=== PATIENT | male | born 1970 ===

== ENCOUNTER 2017-01-15 17:29 | Inpatient (IN) | payer OTHER ==
[2017-01-15] MEDS ORDERED: Sodium Chloride 0.9% 1,000 ML IV STA ×2 (18:05→19:20)
--- NOTE | 2017-01-15 18:17 | ED PDOC ---
Hyperglycemia/Hypoglycemia Time Seen by Provider: 01/15/17 17:59 Chief Complaint (Nursing): Weakness/Neurological Deficit Chief Complaint (Provider): hyperglycemia History Per: Patient History/Exam Limitations: no limitations Onset/Duration Of Symptoms: Days (x2-3) Current Symptoms Are (Timing): Still Present : The patient does not have any of the infectious symptoms listed except for those marked. Additional Complaint(s): Alcon Reynoso is a 46 year old male with previous medical history of diabetes, asthma and hypertension, who presents to the emergency department for an evaluation after several days of monitoring her glucose levels at home associated with polyuria/polydipsia and reported glucose level was >400 today. Denied vomiting or abdominal pain. PMD: none provided Past Medical History Reviewed: Historical Data, Nursing Documentation, Vital Signs Vital Signs: Last Vital Signs Temp 98.1 F 01/15/17 17:49 Pulse 90 01/15/17 17:49 Resp 16 01/15/17 17:49 BP 173/96 H 01/15/17 17:49 Pulse Ox 100 01/15/17 17:49 - Medical History PMH: Anxiety, Asthma, Depression, Diabetes, HTN Denies: HIV, Chronic Kidney Disease - Family History Family History: States: Diabetes - Home Medications Home Medications: Ambulatory Orders Medication Instructions Recorded Aspirin [Ecotrin] 81 mg PO DAILY 11/29/15 DULoxetine [Cymbalta] 60 mg PO DAILY 11/29/15 Enalapril Maleate [Vasotec] 20 mg PO DAILY 11/29/15 Gemfibrozil [Lopid] 600 mg PO BID 11/29/15 GlipiZIDE [Glucotrol] 10 mg PO BID 11/29/15 Hydroxyzine Pamoate [Vistaril] 25 mg PO TID PRN 11/29/15 MetFORMIN [glucoPHAGE] 1,000 mg PO BID 11/29/15 Metoprolol Succinate [Toprol XL] 50 mg PO BID 11/29/15 amLODIPine [Norvasc] 10 mg PO DAILY 11/29/15 - Allergies Allergies/Adverse Reactions: Allergies Allergy/AdvReac Type Severity Reaction Status Date / Time cashew nut Allergy URTICARIA Verified 01/15/17 17:48 cat dander Allergy URTICARIA Verified 01/15/17 17:48 dog dander Allergy URTICARIA Verified 01/15/17 17:48 mice Allergy URTICARIA Uncoded 01/15/17 17:48 Review of Systems ROS Statement: Except As Marked, All Systems Reviewed And Found Negative Gastrointestinal: Positive for: Other (polydipsia). Negative for: Vomiting, Abdominal Pain Genitourinary Male: Positive for: Frequency Physical Exam - Reviewed Nursing Documentation Reviewed: Yes Vital Signs Reviewed: Yes - Physical Exam Appears: Positive for: Well, Non-toxic, No Acute Distress Head Exam: Positive for: ATRAUMATIC, NORMAL INSPECTION, NORMOCEPHALIC ENT: Positive for: Other (tacky mucous membranes). Negative for: Normal ENT Inspection Cardiovascular/Chest: Positive for: Regular Rate, Rhythm, Chest Non Tender. Negative for: Murmur Respiratory: Positive for: Normal Breath Sounds, Accessory Muscle Use. Negative for: Decreased Breath Sounds, Respiratory Distress Gastrointestinal/Abdominal: Positive for: Normal Exam, Bowel Sounds, Soft. Negative for: Tenderness Extremity: Positive for: Normal ROM. Negative for: Tenderness, Pedal Edema, Deformity Neurologic/Psych: Positive for: Alert, Oriented - Laboratory Results Result Diagrams: 01/15/17 18:30 - ECG O2 Sat by Pulse Oximetry: 100 (RA) Pulse Ox Interpretation: Normal Medical Decision Making Medical Decision Making: Initial Impression: Hyperglycemia Initial Plan: * VBG * EKG * CMP * Urine dipstick * CBC * NS 1,000ml IV per 250mls/hr Scribe Attestation: Documented by Maggie Perez, acting as a scribe for Raul Houston MD. Provider Scribe Attestation: All medical record entries made by the Scribe were at my direction and personally dictated by me. I have reviewed the chart and agree that the record accurately reflects my personal performance of the history, physical exam, medical decision making, and the department course for this patient. I have also personally directed, reviewed, and agree with the discharge instructions and disposition. Disposition - Clinical Impression Clinical Impression: Uncontrolled diabetes mellitus - Patient ED Disposition Is Patient to be Admitted: Transfer of Care - Disposition Disposition: Transfer of Care Disposition Time: 18:57 Condition: FAIR Forms: [facility] (Bengali) Patient Signed Over To: Kristian Wilks
[2017-01-15] MEDS ORDERED: Insulin Regular 100 units/ml SC STA ×2 (18:43→22:59)
[2017-01-15 18:49] LABS: BASO # 0.1 K/uL (0.0-0.2); BASO % 0.5 % (0.0-2.0); EOS # 0.1 K/uL (0.0-0.7); HEMATOCRIT 41.1 % (35.0-51.0); LYMPH # 1.7 K/uL (1.0-4.3); LYMPH % 16.5 % (20.0-40.0); MEAN CELL VOLUME 90.2 fl (80.0-94.0); MEAN CORPUSCULAR HEMOGLOBIN 29.3 pg (27.0-31.0); MEAN CORPUSCULAR HGB CONC 32.5 g/dL (33.0-37.0); MEAN PLATELET VOLUME 10.1 fl (7.2-11.7); MONO # 0.5 K/uL (0.0-0.8); MONO % 4.7 % (0.0-10.0); NEUT # 8.1 K/uL (1.8-7.0); NEUT % 77.3 % (50.0-75.0); NRBC % 0.1 % (0.0-0.0); RED CELL DISTRIBUTION WIDTH 12.9 % (11.5-14.5); WHITE BLOOD COUNT 10.4 K/uL (4.8-10.8)
[2017-01-15 19:01] LABS: ALB/GLOB RATIO 1.3 (1.0-2.1); BILIRUBIN,TOTAL 0.3 mg/dl (0.2-1.3); CALCIUM 9.3 mg/dL (8.4-10.2)
[2017-01-15 19:02] LABS: POTASSIUM 5.1 MMOL/L (3.6-5.0)
[2017-01-15] MEDS ORDERED: Insulin Regular 100 units/ml IV STA (19:19)
--- NOTE | 2017-01-15 19:33 | ED PDOC ---
- Laboratory Results Result Diagrams: 01/15/17 18:30 01/15/17 18:30 - ECG O2 Sat by Pulse Oximetry: 100 (RA) Pulse Ox Interpretation: Normal Medical Decision Making Medical Decision Making: Time: 1899 --Patient was endorsed to provider by Dr. Raul Houston. Pending lab results and re-evaluation. Scribe Attestation: Documented by Maggie Perez, acting as a scribe for Kristian Wilks MD. Provider Scribe Attestation: All medical record entries made by the Scribe were at my direction and personally dictated by me. I have reviewed the chart and agree that the record accurately reflects my personal performance of the history, physical exam, medical decision making, and the department course for this patient. I have also personally directed, reviewed, and agree with the discharge instructions and disposition. Disposition Discussed With DrJaguar: Jonathan Giron Doctor Will See Patient In The: Hospital Counseled Patient/Family Regarding: Studies Performed, Diagnosis - Clinical Impression Clinical Impression: Uncontrolled diabetes mellitus, Hyperglycemia, Hyperkalemia, ARF (acute renal failure) - POA Present On Arrival: Poor Glycemic Control - Disposition Disposition: Admitted as In-Patient Disposition Time: 23:00 Condition: FAIR
[2017-01-15 20:12] LABS: ABG ALLEN TEST YES; ARTERIAL BLOOD GAS HCO3 24.8 mmol/L (21-28); ARTERIAL BLOOD GAS O2 CONTENT 17.9 ML/dL (15-23); ARTERIAL BLOOD GAS PH 7.36 (7.35-7.45); ARTERIAL BLOOD GAS PO2 60 mm/Hg (80-100); ARTERIAL BLOOD HGB O2 SAT 89.8 % (95.0-98.0); CARBOXYHEMOGLOBIN 2.8 % (0.5-1.5); HHB 5.5 % (0.0-5.0); METHEMOGLOBIN 1.9 % (0.0-3.0)
[2017-01-15] MEDS ORDERED: Insulin Regular 100 units/ml ONE (20:34)
[2017-01-15] MEDS ORDERED: Sod Polystyrene Sulf 15 gm/60 ml Susp PO ONE (23:01)
[2017-01-15] MEDS ORDERED: Albuterol 0.083% Inhal Sol (2.5 mg/3 mL) UD INH STA (23:01)
[2017-01-16] MEDS ORDERED: Albuterol 0.083% Inhal Sol (2.5 mg/3 mL) UD ONE (00:25)
[2017-01-16] MEDS ORDERED: Insulin Regular 100 units/ml ONE (00:25)
[2017-01-16] MEDS ORDERED: Sod Polystyrene Sulf 15 gm/60 ml Susp ONE (00:26)
--- NOTE | 2017-01-16 07:30 | CARD ---
APPROVED REPORT EKG Measurement Heart [id number] <Conclusion> Normal sinus rhythm Possible Left atrial enlargement Septal infarct, age undetermined Abnormal ECG
[2017-01-16 07:37] LABS: HEMATOCRIT 37.5 % (35.0-51.0); MEAN CELL VOLUME 88.9 fl (80.0-94.0); MEAN CORPUSCULAR HEMOGLOBIN 29.4 pg (27.0-31.0); MEAN CORPUSCULAR HGB CONC 33.1 g/dL (33.0-37.0); RED CELL DISTRIBUTION WIDTH 12.5 % (11.5-14.5); WHITE BLOOD COUNT 9.4 K/uL (4.8-10.8)
[2017-01-16 07:46] LABS: PARTIAL THROMBOPLASTIN TIME 33.8 Seconds (25.6-37.1)
[2017-01-16 07:51] LABS: ALB/GLOB RATIO 1.3 (1.0-2.1); ALKALINE PHOSPHATASE 96 U/L (38-126); ALT/SGPT 35 U/L (21-72); AST/SGOT 23 U/L (17-59); BILIRUBIN,TOTAL 0.2 mg/dl (0.2-1.3); BLOOD UREA NITROGEN 21 mg/dl (9-20); CALCIUM 8.8 mg/dL (8.4-10.2); CARBON DIOXIDE 27 mmol/L (22-30); CHLORIDE 99 mmol/L (98-107); CHOLESTEROL 222 mg/dL (0-199); GFR AFRICAN-AMERICAN > 60; GLUCOSE,RANDOM 328 mg/dL (75-110); POTASSIUM 4.1 MMOL/L (3.6-5.0); SODIUM 134 mmol/l (132-148); TOTAL PROTEIN 6.6 G/DL (6.3-8.2)
[2017-01-16 08:09] LABS: T4 4.73 ug/dl (5.5-11.0)
[2017-01-16 08:21] LABS: THYROID STIMULATING HORMONE 1.38 mIU/ML (0.46-4.68)
[2017-01-16] MEDS ORDERED: PIOGLITAZONE PO SCH (09:00)
[2017-01-16] MEDS ORDERED: [UNRECOGNIZED DRUG - OTHER] PO SCH (09:00)
[2017-01-16] MEDS ORDERED: ALOGLIPTIN PO SCH (09:00)
--- NOTE | 2017-01-16 09:11 | CP.PCM.PN ---
Subjective - Date & Time of Evaluation Date of Evaluation: 01/16/17 Time of Evaluation: 09:09 - Subjective Subjective: This patient who is 46 years of age I was called to see him for abnormal kidney function. Patient apparently came to the emergency room because of high glucose and polyuria polydipsia and blood work was done in the ER and showed abnormal as noted Past medical history diabetes mellitus for a while History of hypertension Social history nonsignificant Review of system as noted Objective - Vital Signs/Intake and Output Vital Signs (last 24 hours): Temp Pulse Resp BP Pulse Ox 97.6 F 83 18 160/99 H 96 01/16/17 08:00 01/16/17 08:00 01/16/17 08:00 01/16/17 08:00 01/16/17 08:00 Intake and Output: 01/16/17 01/16/17 06:59 18:59 Intake Total 1000 Balance 1000 - Medications Medications: Current Medications Albuterol (Ventolin Hfa 90 Mcg/Actuation (8 G)) 1 puff IH DAILY [facility] Amlodipine Besylate (Norvasc) 10 mg PO DAILY [facility] Aspirin (Ecotrin) 81 mg PO DAILY [facility] Duloxetine HCl (Cymbalta) 60 mg PO DAILY [facility] Enalapril Maleate (Vasotec) 20 mg PO DAILY [facility] Gabapentin (Neurontin) 600 mg PO TID [facility] Gemfibrozil (Lopid) 600 mg PO BID [facility] Glipizide (Glucotrol) 10 mg PO BID [facility] Home Med (Alogliptin Fredy/Pioglitazone [Alogliptin-Pioglit 25-15 Mg Tb]) 1 each PO DAILY [facility] Hydroxyzine Pamoate (Vistaril) 25 mg PO TID PRN PRN Reason: Itching / Pruritus Insulin Human Lispro (Humalog) 0 units SC ACHS [facility] PRN Reason: Protocol Metoprolol Succinate (Toprol Xl) 50 mg PO BID [facility] Pantoprazole Sodium (Protonix Ec Tab) 40 mg PO DAILY [facility] - Labs Labs: 01/16/17 07:25 01/16/17 07:25 PT 9.3 Seconds (9.8-13.1) L 01/16/17 07:25 INR 0.8 (0.9-1.2) L 01/16/17 07:25 APTT 33.8 Seconds (25.6-37.1) 01/16/17 07:25 - Constitutional Appears: No Acute Distress - ENT Exam ENT Exam: Mucous Membranes Moist - Respiratory Exam Respiratory Exam: NORMAL BREATHING PATTERN. absent: Chest Wall Tenderness, Rales - Cardiovascular Exam Cardiovascular Exam: REGULAR RHYTHM. absent: JVD, Rubs - GI/Abdominal Exam GI & Abdominal Exam: Soft, Normal Bowel Sounds - Extremities Exam Extremities Exam: absent: Calf Tenderness - Back Exam Back Exam: absent: CVA tenderness (L), CVA tenderness (R) - Neurological Exam Neurological Exam: Alert - Psychiatric Exam Psychiatric exam: Normal Affect - Skin Skin Exam: absent: Cyanosis
--- NOTE | 2017-01-16 09:13 | CP.PCM.CON ---
History of Present Illness - History of Present Illness History of Present Illness: This patient who is 46 years of age I was called to see him for abnormal kidney function. Patient apparently came to the emergency room because of high glucose and polyuria polydipsia and blood work was done in the ER and showed abnormal as noted Past medical history diabetes mellitus for a while History of hypertension Social history nonsignificant Review of system as noted Review of Systems - Constitutional Constitutional: absent: Chills - EENT Eyes: As Per HPI Nose/Mouth/Throat: As Per HPI. absent: Epistaxis, Bleeding Gums - Cardiovascular Cardiovascular: absent: Acrocyanosis, Dyspnea, Leg Edema - Respiratory Respiratory: absent: Cough, Hemoptysis, Dyspnea on Exertion - Gastrointestinal Gastrointestinal: absent: Abdominal Pain, Coffee Ground Emesis, Vomiting - Reproductive: Male Reproductive:Male: As Per HPI - Integumentary Integumentary: absent: Bleeding Lesions - Neurological Neurological: absent: Abnormal Gait, Abnormal Movements, Confusion, Dizziness, Numbness, Focal Weakness - Psychiatric Psychiatric: absent: Anxiety - Endocrine Endocrine: As Per HPI - Hematologic/Lymphatic Hematologic: absent: Easy Bleeding Past Patient History - Infectious Disease Hx of Infectious Diseases: None - Past Medical History & Family History Past Medical History?: Yes - Past Social History Smoking Status: Never Smoked - CARDIAC Hx Cardiac Disorders: Yes - PULMONARY Hx Respiratory Disorders: Yes - NEUROLOGICAL Hx Neurological Disorder: No - HEENT Hx HEENT Problems: No - RENAL Hx Chronic Kidney Disease: No - ENDOCRINE/METABOLIC Hx Endocrine Disorders: Yes - HEMATOLOGICAL/ONCOLOGICAL Hx AIDS: No Hx Human Immunodeficiency Virus (HIV): No - INTEGUMENTARY Hx Dermatological Problems: No - MUSCULOSKELETAL/RHEUMATOLOGICAL Hx Falls: No - GASTROINTESTINAL Hx Gastrointestinal Disorders: No - GENITOURINARY/GYNECOLOGICAL Hx Genitourinary Disorders: Yes - PSYCHIATRIC Hx Substance Use: No - SURGICAL HISTORY Hx Surgeries: No Hx Open Heart Surgery: No - ANESTHESIA Hx Anesthesia: No Meds Allergies/Adverse Reactions: Allergies Allergy/AdvReac Type Severity Reaction Status Date / Time cashew nut Allergy URTICARIA Verified 01/15/17 17:48 cat dander Allergy URTICARIA Verified 01/15/17 17:48 dog dander Allergy URTICARIA Verified 01/15/17 17:48 mice Allergy URTICARIA Uncoded 01/15/17 17:48 - Medications Medications: Current Medications Albuterol (Ventolin Hfa 90 Mcg/Actuation (8 G)) 1 puff IH DAILY [facility] Amlodipine Besylate (Norvasc) 10 mg PO DAILY [facility] Aspirin (Ecotrin) 81 mg PO DAILY [facility] Duloxetine HCl (Cymbalta) 60 mg PO DAILY [facility] Enalapril Maleate (Vasotec) 20 mg PO DAILY [facility] Gabapentin (Neurontin) 600 mg PO TID [facility] Gemfibrozil (Lopid) 600 mg PO BID [facility] Glipizide (Glucotrol) 10 mg PO BID [facility] Home Med (Alogliptin Fredy/Pioglitazone [Alogliptin-Pioglit 25-15 Mg Tb]) 1 each PO DAILY [facility] Hydroxyzine Pamoate (Vistaril) 25 mg PO TID PRN PRN Reason: Itching / Pruritus Insulin Human Lispro (Humalog) 0 units SC ACHS [facility] PRN Reason: Protocol Metoprolol Succinate (Toprol Xl) 50 mg PO BID [facility] Pantoprazole Sodium (Protonix Ec Tab) 40 mg PO DAILY [facility] Physical Exam - Constitutional Appears: No Acute Distress - ENT Exam ENT Exam: Mucous Membranes Moist - Respiratory Exam Respiratory Exam: NORMAL BREATHING PATTERN. absent: Chest Wall Tenderness, Rales - Cardiovascular Exam Cardiovascular Exam: Clicks. absent: JVD, Rubs - GI/Abdominal Exam GI & Abdominal Exam: Normal Bowel Sounds. absent: Distended, Guarding - Extremities Exam Extremities exam: Negative for: calf tenderness - Back Exam Back exam: absent: CVA tenderness (L), CVA tenderness (R) - Neurological Exam Neurological exam: Alert - Psychiatric Exam Psychiatric exam: Normal Affect Results - Vital Signs Recent Vital Signs: Last Vital Signs Temp 97.6 F 01/16/17 08:00 Pulse 83 01/16/17 08:00 Resp 18 01/16/17 08:00 BP 160/99 H 01/16/17 08:00 Pulse Ox 96 01/16/17 08:00 - Labs Result Diagrams: 01/16/17 07:25 01/16/17 07:25 Labs: Laboratory Results - last 24 hr 01/15/17 01/15/17 01/15/17 18:06 18:30 18:30 WBC 10.4 RBC 4.55 Hgb 13.4 Hct 41.1 MCV 90.2 MCH 29.3 MCHC 32.5 L RDW 12.9 Plt Count 264 MPV 10.1 Neut % (Auto) 77.3 H Lymph % (Auto) 16.5 L [place] % (Auto) 4.7 Eos % (Auto) 1.0 Baso % (Auto) 0.5 Neut # 8.1 H Lymph # 1.7 [place] # 0.5 Eos # 0.1 Baso # 0.1 PT INR APTT pCO2 pO2 HCO3 ABG pH ABG Total CO2 ABG O2 Saturation ABG O2 Content ABG Base Excess ABG Hemoglobin ABG Carboxyhemoglobin POC ABG HHb (Measured) ABG Methemoglobin ABG O2 Capacity Giovanny Test A-a O2 Difference Hgb O2 Saturation FiO2 Sodium 127 L Potassium 5.1 H Chloride 94 L Carbon Dioxide 22 Anion Gap 16 BUN 25 H Creatinine 1.7 H Est GFR ( Amer) 53 Est GFR (Non-Af Amer) 43 POC Glucose (mg/dL) 472 H* Random Glucose 549 H* D Calcium 9.3 Total Bilirubin 0.3 AST 26 ALT 30 Alkaline Phosphatase 90 Total Protein 7.0 Albumin 4.0 Globulin 3.0 Albumin/Globulin Ratio 1.3 Triglycerides Cholesterol LDL Cholesterol Direct HDL Cholesterol Thyroxine (T4) TSH 3rd Generation 01/15/17 01/15/17 01/15/17 19:21 19:59 22:54 WBC RBC Hgb Hct MCV MCH MCHC RDW Plt Count MPV Neut % (Auto) Lymph % (Auto) [place] % (Auto) Eos % (Auto) Baso % (Auto) Neut # Lymph # [place] # Eos # Baso # PT INR APTT pCO2 46 H pO2 60 L HCO3 24.8 ABG pH 7.36 ABG Total CO2 27.4 ABG O2 Saturation 94.2 L ABG O2 Content 17.9 ABG Base Excess 0.1 ABG Hemoglobin 14.2 ABG Carboxyhemoglobin 2.8 H POC ABG HHb (Measured) 5.5 H ABG Methemoglobin 1.9 ABG O2 Capacity 19.0 Giovanny Test Yes A-a O2 Difference 32.0 Hgb O2 Saturation 89.8 L FiO2 21.0 Sodium Potassium Chloride Carbon Dioxide Anion Gap BUN Creatinine Est GFR ( Amer) Est GFR (Non-Af Amer) POC Glucose (mg/dL) > 500 H* 398 H Random Glucose Calcium Total Bilirubin AST ALT Alkaline Phosphatase Total Protein Albumin Globulin Albumin/Globulin Ratio Triglycerides Cholesterol LDL Cholesterol Direct HDL Cholesterol Thyroxine (T4) TSH 3rd Generation 1001/16/17 01/16/17 07:25 07:25 07:25 WBC 9.4 RBC 4.22 L Hgb 12.4 Hct 37.5 MCV 88.9 MCH 29.4 MCHC 33.1 RDW 12.5 Plt Count 256 MPV Neut % (Auto) Lymph % (Auto) [place] % (Auto) Eos % (Auto) Baso % (Auto) Neut # Lymph # [place] # Eos # Baso # PT 9.3 L INR 0.8 L APTT 33.8 pCO2 pO2 HCO3 ABG pH ABG Total CO2 ABG O2 Saturation ABG O2 Content ABG Base Excess ABG Hemoglobin ABG Carboxyhemoglobin POC ABG HHb (Measured) ABG Methemoglobin ABG O2 Capacity Giovanny Test A-a O2 Difference Hgb O2 Saturation FiO2 Sodium 134 Potassium 4.1 Chloride 99 Carbon Dioxide 27 Anion Gap 12 BUN 21 H Creatinine 1.3 Est GFR ( Amer) > 60 Est GFR (Non-Af Amer) 59 POC Glucose (mg/dL) Random Glucose 328 H Calcium 8.8 Total Bilirubin 0.2 AST 23 ALT 35 Alkaline Phosphatase 96 Total Protein 6.6 Albumin 3.7 Globulin 2.9 Albumin/Globulin Ratio 1.3 Triglycerides 436 H D Cholesterol 222 H LDL Cholesterol Direct 157 H HDL Cholesterol 23 L Thyroxine (T4) 4.73 L TSH 3rd Generation 1.38 Assessment & Plan (1) ARF (acute renal failure) Assessment and Plan: Patient appeared to have acute kidney injury from dehydration which continued to improve after hydration overnight serum creatinine coming down #2 patient has hyponatremia which has been improving going hydration as well serum sodium going up #3 hyperkalemia serum potassium 5.1 which has been corrected after hydration Patient admitted with uncontrolled diabetes Continue gentle hydration receiving hemoglobin came down because of the hemoconcentration initially Continue monitoring Status: Acute
[2017-01-16] MEDS: Insulin Lispro (humaLOG) 100 Units/ml Inj SC SCH ×5 (09:59→22:22)
[2017-01-16] MEDS: Pantoprazole 40 mg EC Tab PO SCH (10:01)
[2017-01-16] MEDS: Metoprolol Succinate 50 mg XL Tab PO SCH ×2 (10:02→16:48)
[2017-01-16] MEDS: Albuterol HFA 90 mcg/actuation (8 g) IH SCH (10:03)
--- NOTE | 2017-01-16 10:46 | CARD ---
APPROVED REPORT EXAM: Two-dimensional and M-mode echocardiogram with Doppler and color Doppler. Other Information Quality : GoodRhythm : NSR INDICATION LV Function:SystolicDiastolic 2D DIMENSIONS IVSd1.84 (0.7-1.1cm)LVDd4.06 (3.9-5.9cm) LVOT Diameter2.43 (1.8-2.4cm)PWd1.10 (0.7-1.1cm) IVSs1.93 (0.8-1.2cm)LVDs2.39 (2.5-4.0cm) FS (%) 41.0 %PWs2.17 (0.8-1.2cm) M-Mode DIMENSIONS Left Atrium (MM)4.03 (2.5-4.0cm)IVSd2.09 (0.7-1.1cm) Aortic Root3.41 (2.2-3.7cm)LVDd4.26 (4.0-5.6cm) Aortic Cusp Exc.2.06 (1.5-2.0cm)PWd1.65 (0.7-1.1cm) IVSs2.26 cmFS (%) 35 % LVDs2.76 (2.0-3.8cm)PWs2.26 cm Mitral Valve MV E Udtphynz24.8cm/sMV DECEL [id number] A Mvheuost91.9cm/s MV [id number]/A ratio0.7MVA (PHT)5.63cm2 TDI Lateral E' Peak V12.14cm/sMedial E' Peak V4.32cm/sE/Lateral E'4.0 E/Medial E'11.3 Pulmonary Valve PV Peak Osmyrfuw626.4cm/s LEFT VENTRICLE The left ventricle is normal size. There is normal left ventricular wall thickness. Left ventricle systolic function is normal. The Ejection Fraction is 65-70%. There is normal LV segmental wall motion. The left ventricular diastolic function is normal. RIGHT VENTRICLE The right ventricle is normal size. There is normal right ventricular wall thickness. The right ventricular systolic function is normal. ATRIA The left atrium size is normal. The right atrium size is normal. AORTIC VALVE The aortic valve is normal in structure and function. No aortic regurgitation is present. There is no aortic valvular stenosis. MITRAL VALVE The mitral valve is normal in structure and function. There is no evidence of mitral valve prolapse. There is no mitral valve stenosis. There is no mitral valve regurgitation noted. TRICUSPID VALVE The tricuspid valve is normal in structure and function. There is no tricuspid valve regurgitation noted. PULMONIC VALVE The pulmonary valve is normal in structure and function. There is no pulmonic valvular regurgitation. GREAT VESSELS The aortic root is normal in size. The IVC was not visualized. PERICARDIAL EFFUSION The pericardium appears normal. <Conclusion> The left ventricle is normal size. There is normal left ventricular wall thickness. There is normal LV segmental wall motion. Left ventricle systolic function is normal. The Ejection Fraction is 65-70%. The left ventricular diastolic function is normal.
[2017-01-16] MEDS: Omega-3-Acid Ethyl Esters 1 GM Cap PO SCH ×2 (13:19→16:49)
[2017-01-16 13:26] LABS: RBC URINE < 1 /hpf (0-3); URINE BILIRUBIN NEGATIVE (NEGATIVE); URINE BLOOD NEGATIVE (NEGATIVE); URINE COLOR STRAW (YELLOW); URINE GLUCOSE (UA) >=500 mg/dL (Normal); URINE KETONE NEGATIVE (NEGATIVE); URINE LEUKOCYTE ESTERASE NEG Leu/uL (Negative); URINE PROTEIN 30 mg/dL (NEGATIVE); URINE UROBILINOGEN 0.2-1.0 mg/dL (0.2-1.0)
--- NOTE | 2017-01-16 13:30 | US ---
PROCEDURE: Ultrasound of the Kidneys HISTORY: ARF and hyper Lisbeth me a COMPARISON: None available. TECHNIQUE: Sonogram of the kidneys. FINDINGS: RIGHT KIDNEY: Measures: 5.1 x 7.6 x 12.2 cm. Normal in size, contour and echogenicity. No stone, solid mass lesion or hydronephrosis visualized. LEFT KIDNEY: Measures: 5.5 x 6.2 x 12 cm. Normal in size, contour and echogenicity. No stone, solid mass lesion or hydronephrosis visualized. OTHER FINDINGS: None. IMPRESSION: Unremarkable renal sonogram.
--- NOTE | 2017-01-16 13:32 | US ---
PROCEDURE: Duplex ultrasound of the carotid and vertebral arteries. HISTORY: PER MD COMPARISON: None available. TECHNIQUE: Grayscale and duplex Doppler evaluation of the cervical carotid and vertebral arteries were performed. The common carotid, carotid bifurcations and cervical ICA and proximal ECA were evaluated. The vertebral arteries were evaluated for gross patency and direction. FINDINGS: RIGHT CAROTID ARTERIES: Common Carotid Artery: Normal. Maximal flow velocity of 138.3 cm/s. Carotid Bifurcation: Focal calcified plaque Internal Carotid Artery:Heterogeneous plaque formation. tortuous ICA Maximal flow velocity of 80.1 cm/s. External Carotid Artery (proximal branches): Normal. Maximal flow velocity of 143.1 cm/s. ICA/CCA Ratio: 0.9 LEFT CAROTID ARTERIES: Common Carotid Artery: Normal. Maximal flow velocity of 102.7 cm/s. Carotid Bifurcation: Normal. Internal Carotid Artery:Heterogeneous plaque formation. Maximal flow velocity of 101.1 cm/s. External Carotid Artery (proximal branches): Normal. Maximal flow velocity of 122.1 cm/s. ICA/CCA Ratio: 1.0 VERTEBRAL ARTERIES: Right Vertebral Artery: Patent. Antegrade flow. Left Vertebral Artery: Patent. Antegrade flow. OTHER FINDINGS: None. IMPRESSION: Right ICA degree of stenosis: Less than 50% Left ICA degree of stenosis: Less than 50% Reference Internal Carotid Artery (ICA) Peak Systolic Velocity (PSV) for above: 1. Less than 50% stenosis less than 125 cm/s peak systolic velocity 2. 50-69% stenosis 125-230cm/s peak systolic velocity 3. Greater than 70% but less than near occlusion greater than 230 cm/s peak systolic velocity
--- NOTE | 2017-01-16 15:42 | CP.PCM.HP ---
History of Present Illness - History of Present Illness History of Present Illness: CC: Uncontrolled BS 46 y/o M, came to ER [facility] to be evaluated and Tx for elevated BS for 2-3 days [employer] with no improvement. In ER serum glucose: 549. Pt appear c/o of BS >400 while at home associated to Polyuria/Polydipsia. Worsening symptom: Weakness, Hx of noncompliance with DM medications in the pass. Aggravated factor: Poor glycemic control. POA Pt denied: Fever, chills, n/v/d, abdominal pain, CP, SOB, blurred vision, sick contact, recent travel. Renal U-S = Unremarkable. Echo: LVEF 65-70%. Carotid Artery U-S: R-L ICA degree of stenosis 50%. Present on Admission - Present on Admission Any Indicators Present on Admission: Yes History of Uncontrolled Diabetes: Yes Review of Systems - Constitutional Constitutional: Weakness - EENT Eyes: Other (negative) Ears: Other (negative) Nose/Mouth/Throat: Other (negative) - Cardiovascular Cardiovascular: Other (negative) - Respiratory Respiratory: Other (negative) - Gastrointestinal Gastrointestinal: Other (negative) - Genitourinary Genitourinary: Urinary Incontinence - Musculoskeletal Musculoskeletal: Other (negative) - Integumentary Integumentary: Other (negative) - Neurological Neurological: Weakness - Psychiatric Psychiatric: Anxiety, Depression - Endocrine Endocrine: Polydipsia, Polyuria - Hematologic/Lymphatic Hematologic: Other (negative) Past Patient History - Infectious Disease Hx of Infectious Diseases: None - Past Medical History & Family History Past Medical History?: Yes Pertinent Family History: DM - Past Social History Smoking Status: Smoker Currrent Status Unknown Alcohol: None Drugs: Denies Home Situation {Lives}: Other - CARDIAC Hx Cardiac Disorders: Yes Hx Hypertension: Yes - PULMONARY Hx Respiratory Disorders: Yes Hx Asthma: Yes - NEUROLOGICAL Hx Neurological Disorder: No - HEENT Hx HEENT Problems: No - RENAL Hx Chronic Kidney Disease: No - ENDOCRINE/METABOLIC Hx Endocrine Disorders: Yes Hx Diabetes Mellitus Type 2: Yes - HEMATOLOGICAL/ONCOLOGICAL Hx Blood Disorders: No Hx AIDS: No Hx Human Immunodeficiency Virus (HIV): No - INTEGUMENTARY Hx Dermatological Problems: No - MUSCULOSKELETAL/RHEUMATOLOGICAL Hx Musculoskeletal Disorders: No Hx Falls: No - GASTROINTESTINAL Hx Gastrointestinal Disorders: No - GENITOURINARY/GYNECOLOGICAL Hx Genitourinary Disorders: Yes Hx Incontinence: Yes - PSYCHIATRIC Hx Psychophysiologic Disorder: Yes Hx Anxiety: Yes Hx Depression: Yes Hx Substance Use: No - SURGICAL HISTORY Hx Surgeries: No Hx Open Heart Surgery: No - ANESTHESIA Hx Anesthesia: No Meds Allergies/Adverse Reactions: Allergies Allergy/AdvReac Type Severity Reaction Status Date / Time cashew nut Allergy URTICARIA Verified 01/15/17 17:48 cat dander Allergy URTICARIA Verified 01/15/17 17:48 dog dander Allergy URTICARIA Verified 01/15/17 17:48 mice Allergy URTICARIA Uncoded 01/15/17 17:48 Physical Exam - Constitutional Appears: No Acute Distress - Head Exam Head Exam: NORMAL INSPECTION - Eye Exam Eye Exam: PERRL - Neck Exam Neck exam: Positive for: Normal Inspection - Respiratory Exam Respiratory Exam: NORMAL BREATHING PATTERN - Cardiovascular Exam Cardiovascular Exam: REGULAR RHYTHM - GI/Abdominal Exam GI & Abdominal Exam: Normal Bowel Sounds, Soft - Extremities Exam Extremities exam: Positive for: normal inspection - Back Exam Back exam: NORMAL INSPECTION - Neurological Exam Neurological exam: Alert, Oriented x3 - Psychiatric Exam Psychiatric exam: Anxious, Depressed - Skin Skin Exam: Warm Results - Vital Signs Recent Vital Signs: Last Vital Signs Temp 97.8 F 01/16/17 12:00 Pulse 84 01/16/17 12:00 Resp 18 01/16/17 12:00 BP 133/89 01/16/17 12:00 Pulse Ox 98 01/16/17 12:00 reviewed Alix - Labs Result Diagrams: 01/16/17 07:25 01/16/17 07:25 Labs: Laboratory Results - last 24 hr 01/15/17 01/15/17 01/15/17 18:06 18:30 18:30 WBC 10.4 RBC 4.55 Hgb 13.4 Hct 41.1 MCV 90.2 MCH 29.3 MCHC 32.5 L RDW 12.9 Plt Count 264 MPV 10.1 Neut % (Auto) 77.3 H Lymph % (Auto) 16.5 L [place] % (Auto) 4.7 Eos % (Auto) 1.0 Baso % (Auto) 0.5 Neut # 8.1 H Lymph # 1.7 [place] # 0.5 Eos # 0.1 Baso # 0.1 PT INR APTT pCO2 pO2 HCO3 ABG pH ABG Total CO2 ABG O2 Saturation ABG O2 Content ABG Base Excess ABG Hemoglobin ABG Carboxyhemoglobin POC ABG HHb (Measured) ABG Methemoglobin ABG O2 Capacity [place] Test A-a O2 Difference Hgb O2 Saturation FiO2 Sodium 127 L Potassium 5.1 H Chloride 94 L Carbon Dioxide 22 Anion Gap 16 BUN 25 H Creatinine 1.7 H Est GFR ( Amer) 53 Est GFR (Non-Af Amer) 43 POC Glucose (mg/dL) 472 H* Random Glucose 549 H* D Hemoglobin A1c Calcium 9.3 Total Bilirubin 0.3 AST 26 ALT 30 Alkaline Phosphatase 90 Total Protein 7.0 Albumin 4.0 Globulin 3.0 Albumin/Globulin Ratio 1.3 Triglycerides Cholesterol LDL Cholesterol Direct HDL Cholesterol Thyroxine (T4) TSH 3rd Generation Urine Color Urine Clarity Urine pH Ur Specific [place] Urine Protein Urine Glucose (UA) Urine Ketones Urine Blood Urine Nitrate Urine Bilirubin Urine Urobilinogen Ur Leukocyte Esterase Urine RBC (Auto) Urine Osmolality Ur Random Creatinine Ur Random Sodium Ur Random Potassium 01/15/17 01/15/17 01/15/17 19:21 19:59 22:54 WBC RBC Hgb Hct MCV MCH MCHC RDW Plt Count MPV Neut % (Auto) Lymph % (Auto) [place] % (Auto) Eos % (Auto) Baso % (Auto) Neut # Lymph # [place] # Eos # Baso # PT INR APTT pCO2 46 H pO2 60 L HCO3 24.8 ABG pH 7.36 ABG Total CO2 27.4 ABG O2 Saturation 94.2 L ABG O2 Content 17.9 ABG Base Excess 0.1 ABG Hemoglobin 14.2 ABG Carboxyhemoglobin 2.8 H POC ABG HHb (Measured) 5.5 H ABG Methemoglobin 1.9 ABG O2 Capacity 19.0 Gi[place] Test Yes A-a O2 Difference 32.0 Hgb O2 Saturation 89.8 L FiO2 21.0 Sodium Potassium Chloride Carbon Dioxide Anion Gap BUN Creatinine Est GFR ( Amer) Est GFR (Non-Af Amer) POC Glucose (mg/dL) > 500 H* 398 H Random Glucose Hemoglobin A1c Calcium Total Bilirubin AST ALT Alkaline Phosphatase Total Protein Albumin Globulin Albumin/Globulin Ratio Triglycerides Cholesterol LDL Cholesterol Direct HDL Cholesterol Thyroxine (T4) TSH 3rd Generation Urine Color Urine Clarity Urine pH Ur Specific [place] Urine Protein Urine Glucose (UA) Urine Ketones Urine Blood Urine Nitrate Urine Bilirubin Urine Urobilinogen Ur Leukocyte Esterase Urine RBC (Auto) Urine Osmolality Ur Random Creatinine Ur Random Sodium Ur Random Potassium 10/19/17 10/19/17 10/19/17 05:02 07:25 07:25 WBC 9.4 RBC 4.22 L Hgb 12.4 Hct 37.5 MCV 88.9 MCH 29.4 MCHC 33.1 RDW 12.5 Plt Count 256 MPV Neut % (Auto) Lymph % (Auto) [place] % (Auto) Eos % (Auto) Baso % (Auto) Neut # Lymph # [place] # Eos # Baso # PT 9.3 L INR 0.8 L APTT 33.8 pCO2 pO2 HCO3 ABG pH ABG Total CO2 ABG O2 Saturation ABG O2 Content ABG Base Excess ABG Hemoglobin ABG Carboxyhemoglobin POC ABG HHb (Measured) ABG Methemoglobin ABG O2 Capacity [place] Test A-a O2 Difference Hgb O2 Saturation FiO2 Sodium Potassium Chloride Carbon Dioxide Anion Gap BUN Creatinine Est GFR ( Amer) Est GFR (Non-Af Amer) POC Glucose (mg/dL) 323 H Random Glucose Hemoglobin A1c Calcium Total Bilirubin AST ALT Alkaline Phosphatase Total Protein Albumin Globulin Albumin/Globulin Ratio Triglycerides Cholesterol LDL Cholesterol Direct HDL Cholesterol Thyroxine (T4) TSH 3rd Generation Urine Color Urine Clarity Urine pH Ur Specific [place] Urine Protein Urine Glucose (UA) Urine Ketones Urine Blood Urine Nitrate Urine Bilirubin Urine Urobilinogen Ur Leukocyte Esterase Urine RBC (Auto) Urine Osmolality Ur Random Creatinine Ur Random Sodium Ur Random Potassium 01/16/17 01/16/17 01/16/17 07:25 07:25 11:38 WBC RBC Hgb Hct MCV MCH MCHC RDW Plt Count MPV Neut % (Auto) Lymph % (Auto) [place] % (Auto) Eos % (Auto) Baso % (Auto) Neut # Lymph # [place] # Eos # Baso # PT INR APTT pCO2 pO2 HCO3 ABG pH ABG Total CO2 ABG O2 Saturation ABG O2 Content ABG Base Excess ABG Hemoglobin ABG Carboxyhemoglobin POC ABG HHb (Measured) ABG Methemoglobin ABG O2 Capacity [place] Test A-a O2 Difference Hgb O2 Saturation FiO2 Sodium 134 Potassium 4.1 Chloride 99 Carbon Dioxide 27 Anion Gap 12 BUN 21 H Creatinine 1.3 Est GFR ( Amer) > 60 Est GFR (Non-Af Amer) 59 POC Glucose (mg/dL) 407 H* Random Glucose 328 H Hemoglobin A1c 15.8 H Calcium 8.8 Total Bilirubin 0.2 AST 23 ALT 35 Alkaline Phosphatase 96 Total Protein 6.6 Albumin 3.7 Globulin 2.9 Albumin/Globulin Ratio 1.3 Triglycerides 436 H D Cholesterol 222 H LDL Cholesterol Direct 157 H HDL Cholesterol 23 L Thyroxine (T4) 4.73 L TSH 3rd Generation 1.38 Urine Color Urine Clarity Urine pH Ur Specific [place] Urine Protein Urine Glucose (UA) Urine Ketones Urine Blood Urine Nitrate Urine Bilirubin Urine Urobilinogen Ur Leukocyte Esterase Urine RBC (Auto) Urine Osmolality Ur Random Creatinine Ur Random Sodium Ur Random Potassium 01/16/17 01/16/17 01/16/17 12:40 12:40 12:40 WBC RBC Hgb Hct MCV MCH MCHC RDW Plt Count MPV Neut % (Auto) Lymph % (Auto) [place] % (Auto) Eos % (Auto) Baso % (Auto) Neut # Lymph # [place] # Eos # Baso # PT INR APTT pCO2 pO2 HCO3 ABG pH ABG Total CO2 ABG O2 Saturation ABG O2 Content ABG Base Excess ABG Hemoglobin ABG Carboxyhemoglobin POC ABG HHb (Measured) ABG Methemoglobin ABG O2 Capacity [place] Test A-a O2 Difference Hgb O2 Saturation FiO2 Sodium Potassium Chloride Carbon Dioxide Anion Gap BUN Creatinine Est GFR ( Amer) Est GFR (Non-Af Amer) POC Glucose (mg/dL) Random Glucose Hemoglobin A1c Calcium Total Bilirubin AST ALT Alkaline Phosphatase Total Protein Albumin Globulin Albumin/Globulin Ratio Triglycerides Cholesterol LDL Cholesterol Direct HDL Cholesterol Thyroxine (T4) TSH 3rd Generation Urine Color Straw Urine Clarity Clear Urine pH 6.0 Ur Specific [place] 1.017 Urine Protein 30 Urine Glucose (UA) >=500 Urine Ketones Negative Urine Blood Negative Urine Nitrate Negative Urine Bilirubin Negative Urine Urobilinogen 0.2-1.0 Ur Leukocyte Esterase Neg Urine RBC (Auto) < 1 Urine Osmolality 535 Ur Random Creatinine 64.2 Ur Random Sodium 96 Ur Random Potassium 16.6 reviewed J.P.reviewed J.P. - EKG Data EKG comments: reviewed J.P. - Impressions Impression: Renal U-S, Carotid Artery U-S and Eccho = All reviewed J.P. Assessment & Plan (1) Uncontrolled diabetes mellitus Status: Acute Priority: High (2) Hyperglycemia Status: Acute Priority: High (3) ARF (acute renal failure) Status: Acute (4) Dyslipidemia Status: Chronic Priority: High (5) HTN (hypertension) Status: Chronic Priority: Medium (6) Depressed Status: Chronic Priority: Medium (7) Asthma Status: Chronic Priority: Medium - Assessment and Plan (Free Text) Plan: Humalog, Levemir, Glucotrol, Lopid, Lovaza, Ventolin and rest of Tx. Nephrology consult appreciated, Endocrinology consult. - Date & Time Date: 01/16/17 Time: 12:00
[2017-01-16] MEDS ORDERED: Insulin Detemir 100 Units/ml Inj SC SCH (22:00)
[2017-01-17 02:26] LABS: MICROALBUMIN 21.5 mg/dL
--- NOTE | 2017-01-17 04:50 | CON ---
DATE: ENDOCRINOLOGY CONSULT LOCATION: Room 418. HISTORY OF PRESENT ILLNESS: This is a 46-year-old male with known history of type 2 diabetes, taking a combination of oral hypoglycemic therapy and presenting here with marked hyperglycemic accelerations and is now being referred for diabetic evaluation and management. PAST MEDICAL HISTORY: As mentioned above, history of type 2 diabetes, currently on a combination of metformin given as 1000 mg b.i.d. with alogliptin and pioglitazone given as 25/15 mg once daily and glipizide given as 10 mg b.i.d.; history of hypertension and dyslipidemia. He has a history of generalized anxiety and depression, on psychotropic medications as noted; history of bronchial asthma also, on bronchodilator therapy. FAMILY HISTORY: Positive for diabetes and hypertension. SOCIAL HISTORY: Patient has a supportive family. No known substance use. REVIEW OF SYSTEMS: As mentioned above, admits to generalized body weakness with easy fatigability and tiredness and suboptimal energy level. Also, admits to episodic bouts of dizziness and lightheadedness, worse on the day of admission. No chest pains or palpitations or PNDs but his oral intake is variable with nausea, dyspepsia, and vague upper abdominal pain. Also, admits to marked polyuria, nocturia, polydipsia, and about a 5-pound or so weight loss. PHYSICAL EXAMINATION: GENERAL: This is an average built male, in no apparent distress. VITAL SIGNS: Blood pressure of 170/90, pulse of 100 beats per minute and regular, temperature 98, respirations 20, height is 5 feet 3 inches, weight is 180 pounds. HEENT: Head normocephalic. Eyes anicteric with pink conjunctivae. Funduscopy not tested at this time. Ears, nose, and throat otherwise normal. NECK: Supple. Thyroid gland is normal in size. No carotid bruits or cervical adenopathy. CARDIOPULMONARY: Some adynamic precordium. S1, S2 is rapid and regular. LUNGS: Clear to auscultation. ABDOMEN: Flat, soft with positive bowel sounds. EXTREMITIES: No peripheral edema. Pulses are +2 bilaterally. LABORATORY DATA: The initial chemistries showed a BUN of 25, sodium 127, potassium 5.1, chloride 94, CO2 of 22, glucose 549, and creatinine 1.7. His glucose levels have ranged from 398 to 472 and over 500 mg/dL. His cholesterol is 222 with a triglyceride level of 436 and HDL 23. His hemoglobin A1c is 15.8% as noted. ASSESSMENT: This is a 46-year-old male with uncontrolled and decompensated type 2 insulin-requiring diabetes with possible secondary pancreatic failure and tremendous insulin resistance with marked hyperglycemic accelerations and very poor response now to his triple oral hypoglycemic drug therapy as given. With his clinical and biochemical profile, he clearly already should be insulin requiring at this time as noted. There is also clinical and biochemical evidence of dehydration and prerenal azotemia with spurious hyponatremia as noted. PLAN OF MANAGEMENT: As discussed with the patient and staff, we will start him right away on a more physiologic basal and bolus insulin drug combination with Levemir to be started as 24 units subcu at bedtime daily, to start tonight. We will also add Humalog given as 10 units subcu t.i.d. before meals to start at dinner time today as ordered. We will modify the coverage scale to obviate hypoglycemia and detailed orders have been given. We will also obtain serial chemistries and supplement accordingly as needed. We will initiate diabetic education to include insulin self-administration techniques as noted. We will also reinforce adherence to healthy food choices and requested dietary evaluation as noted. We will follow. Maggie Mckee MD
[2017-01-17 05:47] LABS: ALB/GLOB RATIO 1.3 (1.0-2.1); ALKALINE PHOSPHATASE 58 U/L (38-126); ALT/SGPT 37 U/L (21-72); AST/SGOT 30 U/L (17-59); BILIRUBIN,TOTAL 0.2 mg/dl (0.2-1.3); BLOOD UREA NITROGEN 18 mg/dl (9-20); CALCIUM 9.1 mg/dL (8.4-10.2); CARBON DIOXIDE 27 mmol/L (22-30); CHLORIDE 100 mmol/L (98-107); GFR AFRICAN-AMERICAN > 60; GLUCOSE,RANDOM 241 mg/dL (75-110); POTASSIUM 3.9 MMOL/L (3.6-5.0); SODIUM 137 mmol/l (132-148); TOTAL PROTEIN 6.8 G/DL (6.3-8.2)
[2017-01-17] MEDS: Pantoprazole 40 mg EC Tab PO SCH (09:02)
[2017-01-17] MEDS: Insulin Lispro (humaLOG) 100 Units/ml Inj SC SCH ×7 (09:03→22:00)
[2017-01-17] MEDS: Omega-3-Acid Ethyl Esters 1 GM Cap PO SCH ×2 (09:05→17:30)
[2017-01-17] MEDS: Albuterol HFA 90 mcg/actuation (8 g) IH SCH (09:07)
[2017-01-17] MEDS: Metoprolol Succinate 50 mg XL Tab PO SCH ×2 (09:07→17:31)
--- NOTE | 2017-01-17 13:08 | CP.PCM.PN ---
Subjective - Date & Time of Evaluation Date of Evaluation: 01/17/17 Time of Evaluation: 11:50 - Subjective Subjective: F/U Uncontrolled DM No c/o. Objective - Vital Signs/Intake and Output Vital Signs (last 24 hours): Temp Pulse Resp BP Pulse Ox 98.3 F 81 18 126/82 98 01/17/17 12:00 01/17/17 12:00 01/17/17 12:00 01/17/17 12:00 01/17/17 12:00 - Medications Medications: Current Medications Albuterol (Ventolin Hfa 90 Mcg/Actuation (8 G)) 1 puff IH DAILY [facility] Last Admin: 01/17/17 09:07 Dose: 1 puff Amlodipine Besylate (Norvasc) 10 mg PO DAILY [facility] Last Admin: 01/17/17 09:05 Dose: 10 mg Aspirin (Ecotrin) 81 mg PO DAILY [facility] Last Admin: 01/17/17 09:02 Dose: 81 mg Duloxetine HCl (Cymbalta) 60 mg PO DAILY [facility] Last Admin: 01/17/17 09:02 Dose: 60 mg Enalapril Maleate (Vasotec) 20 mg PO DAILY [facility] Last Admin: 01/17/17 09:02 Dose: 20 mg Gabapentin (Neurontin) 600 mg PO TID [facility] Last Admin: 01/17/17 12:43 Dose: 600 mg Gemfibrozil (Lopid) 600 mg PO BID [facility] Last Admin: 01/17/17 09:02 Dose: 600 mg Glipizide (Glucotrol) 10 mg PO BID [facility] Last Admin: 01/17/17 09:06 Dose: 10 mg Home Med (Alogliptin Fredy/Pioglitazone [Alogliptin-Pioglit 25-15 Mg Tb]) 1 each PO DAILY [facility] Last Admin: 01/17/17 12:41 Dose: Not Given Hydroxyzine Pamoate (Vistaril) 25 mg PO TID PRN PRN Reason: Itching / Pruritus Insulin Detemir (Levemir) 30 units SC HS [place] Insulin Human Lispro (Humalog) 10 units SC AC [facility] Last Admin: 01/17/17 12:42 Dose: 10 u Insulin Human Lispro (Humalog) 0 units SC ACHS [facility] PRN Reason: Protocol Last Admin: 01/17/17 12:41 Dose: Not Given Metoprolol Succinate (Toprol Xl) 50 mg PO BID [facility] Last Admin: 01/17/17 09:07 Dose: 50 mg [id number] Ethyl Esters (Lovaza) 2 gm PO BID [facility] Last Admin: 01/17/17 09:05 Dose: 2 gm Pantoprazole Sodium (Protonix Ec Tab) 40 mg PO DAILY [facility] Last Admin: 01/17/17 09:02 Dose: 40 mg Pioglitazone HCl (Actos) 15 mg PO DAILY [facility] Last Admin: 01/17/17 12:40 Dose: 15 mg Sitagliptin Phosphate (Januvia) 100 mg PO DAILY [facility] Last Admin: 01/17/17 12:40 Dose: 100 mg - Labs Labs: 01/16/17 07:25 01/17/17 04:20 PT 9.3 Seconds (9.8-13.1) L 01/16/17 07:25 INR 0.8 (0.9-1.2) L 01/16/17 07:25 APTT 33.8 Seconds (25.6-37.1) 01/16/17 07:25 - Constitutional Appears: No Acute Distress - Head Exam Head Exam: NORMAL INSPECTION - Eye Exam Eye Exam: PERRL - ENT Exam ENT Exam: Normal Exam - Neck Exam Neck Exam: Normal Inspection - Respiratory Exam Respiratory Exam: NORMAL BREATHING PATTERN - Cardiovascular Exam Cardiovascular Exam: REGULAR RHYTHM - GI/Abdominal Exam GI & Abdominal Exam: Soft, Normal Bowel Sounds - Extremities Exam Extremities Exam: Normal Inspection - Back Exam Back Exam: NORMAL INSPECTION - Neurological Exam Neurological Exam: Alert, Oriented x3 - Psychiatric Exam Psychiatric exam: Anxious, Depressed - Skin Skin Exam: Warm Assessment and Plan (1) Uncontrolled diabetes mellitus Status: Acute (2) Hyperglycemia Status: Acute (3) ARF (acute renal failure) Status: Acute (4) Dyslipidemia Status: Chronic (5) HTN (hypertension) Status: Chronic (6) Depressed Status: Chronic (7) Asthma Status: Chronic - Assessment and Plan (Free Text) Plan: Continue insulin regimen, monitor BS.
--- NOTE | 2017-01-17 14:24 | CP.PCM.PN ---
Subjective - Date & Time of Evaluation Date of Evaluation: 01/17/17 Time of Evaluation: 14:22 - Subjective Subjective: Patient feeling much better awake Appetite normal Objective - Vital Signs/Intake and Output Vital Signs (last 24 hours): Temp Pulse Resp BP Pulse Ox 98.3 F 81 18 126/82 98 01/17/17 12:00 01/17/17 12:00 01/17/17 12:00 01/17/17 12:00 01/17/17 12:00 - Medications Medications: Current Medications Albuterol (Ventolin Hfa 90 Mcg/Actuation (8 G)) 1 puff IH DAILY [facility] Last Admin: 01/17/17 09:07 Dose: 1 puff Amlodipine Besylate (Norvasc) 10 mg PO DAILY [facility] Last Admin: 01/17/17 09:05 Dose: 10 mg Aspirin (Ecotrin) 81 mg PO DAILY [facility] Last Admin: 01/17/17 09:02 Dose: 81 mg Duloxetine HCl (Cymbalta) 60 mg PO DAILY [facility] Last Admin: 01/17/17 09:02 Dose: 60 mg Enalapril Maleate (Vasotec) 20 mg PO DAILY [facility] Last Admin: 01/17/17 09:02 Dose: 20 mg Gabapentin (Neurontin) 600 mg PO TID [facility] Last Admin: 01/17/17 12:43 Dose: 600 mg Gemfibrozil (Lopid) 600 mg PO BID [facility] Last Admin: 01/17/17 09:02 Dose: 600 mg Glipizide (Glucotrol) 10 mg PO BID [facility] Last Admin: 01/17/17 09:06 Dose: 10 mg Home Med (Alogliptin Fredy/Pioglitazone [Alogliptin-Pioglit 25-15 Mg Tb]) 1 each PO DAILY [facility] Last Admin: 01/17/17 12:41 Dose: Not Given Hydroxyzine Pamoate (Vistaril) 25 mg PO TID PRN PRN Reason: Itching / Pruritus Insulin Detemir (Levemir) 30 units SC HS [facility] Insulin Human Lispro (Humalog) 10 units SC AC [facility] Last Admin: 01/17/17 12:42 Dose: 10 u Insulin Human Lispro (Humalog) 0 units SC ACHS [facility] PRN Reason: Protocol Last Admin: 01/17/17 12:41 Dose: Not Given Metoprolol Succinate (Toprol Xl) 50 mg PO BID [facility] Last Admin: 01/17/17 09:07 Dose: 50 mg [id number]-[id number] Ethyl Esters (Lovaza) 2 gm PO BID [facility] Last Admin: 01/17/17 09:05 Dose: 2 gm Pantoprazole Sodium (Protonix Ec Tab) 40 mg PO DAILY [facility] Last Admin: 01/17/17 09:02 Dose: 40 mg Pioglitazone HCl (Actos) 15 mg PO DAILY [facility] Last Admin: 01/17/17 12:40 Dose: 15 mg Sitagliptin Phosphate (Januvia) 100 mg PO DAILY [facility] Last Admin: 01/17/17 12:40 Dose: 100 mg - Labs Labs: 01/16/17 07:25 01/17/17 04:20 PT 9.3 Seconds (9.8-13.1) L 01/16/17 07:25 INR 0.8 (0.9-1.2) L 01/16/17 07:25 APTT 33.8 Seconds (25.6-37.1) 01/16/17 07:25 - Constitutional Appears: No Acute Distress - ENT Exam ENT Exam: Mucous Membranes Moist - Respiratory Exam Respiratory Exam: NORMAL BREATHING PATTERN. absent: Chest Wall Tenderness - GI/Abdominal Exam GI & Abdominal Exam: Normal Bowel Sounds - Extremities Exam Extremities Exam: absent: Calf Tenderness - Back Exam Back Exam: absent: CVA tenderness (L), CVA tenderness (R) - Neurological Exam Neurological Exam: Alert Assessment and Plan (1) ARF (acute renal failure) Assessment & Plan: Serum creatinine back to normal Serum sodium corrected and electrolyte as well corrected Patient recovers from acute kidney injury Follow-up as needed Thank you Status: Acute
[2017-01-17] MEDS ORDERED: Insulin Detemir 100 Units/ml Inj SC SCH (22:00)
--- NOTE | 2017-01-18 03:10 | PN ---
DATE: ENDOCRINOLOGY FOLLOWUP NOTE LOCATION: In room #418 SUBJECTIVE: This is a 46-year-old male with recent uncontrolled type 2 insulin-requiring diabetes with secondary pancreatic failure despite the outpatient intake of a quadruple oral hypoglycemic drug therapy as given and taken. His glucose values are fluctuating but improved, and the latest chemistry showed a BUN of 18, sodium 137, potassium 3.9, chloride 100, CO2 of 27, glucose 241 and creatinine 1.1. The latest glucose levels have ranged from 126 to 164 and 257 mg/dL. It was 285 at bedtime last night. ASSESSMENT AND PLAN: We will obtain serial chemistries and supplement accordingly as needed. In the meantime, we will continue the Humalog given as 10 units subcu t.i.d. before meals as ordered. We will continue also the low-dose correction scale using Humulin insulin as given. We will increase the Levemir to 30 units subcu at bedtime daily as ordered. We will titrate incrementally as indicated to optimize metabolic control. We will follow and advise accordingly. Maggie Mckee MD
[2017-01-18] MEDS: Insulin Lispro (humaLOG) 100 Units/ml Inj SC SCH ×5 (06:54→17:21)
[2017-01-18] MEDS: Pantoprazole 40 mg EC Tab PO SCH (09:52)
[2017-01-18] MEDS: Omega-3-Acid Ethyl Esters 1 GM Cap PO SCH (09:53)
[2017-01-18] MEDS: Metoprolol Succinate 50 mg XL Tab PO SCH (09:56)
[2017-01-18] MEDS: Albuterol HFA 90 mcg/actuation (8 g) IH SCH (10:04)
--- NOTE | 2017-01-18 12:37 | PN ---
DATE: ENDO FOLLOWUP NOTE ROOM: 418. SUBJECTIVE: This is a 46-year-old male with recent uncontrolled type 2 insulin-requiring diabetes, presenting here with marked hyperglycemic accelerations and is now being followed closely for metabolic management. His glycemic levels have improved overnight with the modification of the insulin regimen as undertaken. His glucose levels have ranged from 126-164 and 257 mg/dL. His latest chemistry shows a BUN of 18, sodium 137, potassium 3.9, chloride 100, CO2 of 27, glucose 241 and creatinine 1.1. So, at this time, we will continue the same basal and bolus insulin regimen to allow for dose equilibration and keep him on the Humalog given as 10 units subcu t.i.d. before meals as ordered. We will continue the Levemir given as 30 units subcu at bedtime daily as given. We will also continue the oral hypoglycemic therapy with glipizide given as 10 mg b.i.d. as ordered. We will titrate incrementally as indicated to optimize metabolic control. He can be cleared for discharge today as noted after the diabetic teaching for insulin self-administration - to be undertaken with nursing staff. We will follow. Maggie Mckee MD cc:
--- NOTE | 2017-01-18 14:18 | CP.PCM.PN ---
Subjective - Date & Time of Evaluation Date of Evaluation: 01/18/17 Time of Evaluation: 15:30 - Subjective Subjective: Uncontrolled DM. No A/D, no c/o. Objective - Vital Signs/Intake and Output Vital Signs (last 24 hours): Temp Pulse Resp BP Pulse Ox 98.4 F 75 18 131/82 97 01/18/17 12:00 01/18/17 12:00 01/18/17 12:00 01/18/17 12:00 01/18/17 12:00 - Medications Medications: Current Medications Albuterol (Ventolin Hfa 90 Mcg/Actuation (8 G)) 1 puff IH DAILY [facility] Last Admin: 01/18/17 10:04 Dose: 1 puff Amlodipine Besylate (Norvasc) 10 mg PO DAILY [facility] Last Admin: 01/18/17 09:52 Dose: 10 mg Aspirin (Ecotrin) 81 mg PO DAILY [facility] Last Admin: 01/18/17 09:54 Dose: 81 mg Duloxetine HCl (Cymbalta) 60 mg PO DAILY [facility] Last Admin: 01/18/17 09:54 Dose: 60 mg Enalapril Maleate (Vasotec) 20 mg PO DAILY [facility] Last Admin: 01/18/17 09:58 Dose: 20 mg Gabapentin (Neurontin) 600 mg PO TID [facility] Last Admin: 01/18/17 13:09 Dose: 600 mg Gemfibrozil (Lopid) 600 mg PO BID [facility] Last Admin: 01/18/17 09:55 Dose: 600 mg Glipizide (Glucotrol) 10 mg PO BID [facility] Last Admin: 01/18/17 09:51 Dose: 10 mg Home Med (Alogliptin Fredy/Pioglitazone [Alogliptin-Pioglit 25-15 Mg Tb]) 1 each PO DAILY [facility] Last Admin: 01/17/17 12:41 Dose: Not Given Hydroxyzine Pamoate (Vistaril) 25 mg PO TID PRN PRN Reason: Itching / Pruritus Last Admin: 01/18/17 09:53 Dose: 25 mg Insulin Detemir (Levemir) 30 units SC HS [facility] Last Admin: 01/17/17 22:07 Dose: 30 units Insulin Human Lispro (Humalog) 10 units SC AC [facility] Last Admin: 01/18/17 13:05 Dose: 10 u Insulin Human Lispro (Humalog) 0 units SC [facility] PRN Reason: Protocol Last Admin: 01/18/17 11:30 Dose: Not Given Metoprolol Succinate (Toprol Xl) 50 mg PO BID [facility] Last Admin: 01/18/17 09:56 Dose: 50 mg Sfamo-9-Ugpi Ethyl Esters (Lovaza) 2 gm PO BID [facility] Last Admin: 01/18/17 09:53 Dose: 2 gm Pantoprazole Sodium (Protonix Ec Tab) 40 mg PO DAILY [facility] Last Admin: 01/18/17 09:52 Dose: 40 mg Pioglitazone HCl (Actos) 15 mg PO DAILY [facility] Last Admin: 01/18/17 09:51 Dose: 15 mg Sitagliptin Phosphate (Januvia) 100 mg PO DAILY [facility] Last Admin: 01/18/17 09:51 Dose: 100 mg - Labs Labs: 01/16/17 07:25 01/17/17 15:13 PT 9.3 Seconds (9.8-13.1) L 01/16/17 07:25 INR 0.8 (0.9-1.2) L 01/16/17 07:25 APTT 33.8 Seconds (25.6-37.1) 01/16/17 07:25 - Constitutional Appears: No Acute Distress - Head Exam Head Exam: NORMAL INSPECTION - Eye Exam Eye Exam: PERRL - ENT Exam ENT Exam: Normal Exam - Neck Exam Neck Exam: Normal Inspection - Respiratory Exam Respiratory Exam: NORMAL BREATHING PATTERN - Cardiovascular Exam Cardiovascular Exam: REGULAR RHYTHM - GI/Abdominal Exam GI & Abdominal Exam: Soft, Normal Bowel Sounds - Extremities Exam Extremities Exam: Normal Inspection - Back Exam Back Exam: NORMAL INSPECTION - Neurological Exam Neurological Exam: Alert, Oriented x3 - Psychiatric Exam Psychiatric exam: Anxious, Depressed - Skin Skin Exam: Warm Assessment and Plan (1) Uncontrolled diabetes mellitus Status: Acute (2) Hyperglycemia Status: Acute (3) ARF (acute renal failure) Status: Acute (4) Dyslipidemia Status: Chronic (5) HTN (hypertension) Status: Chronic (6) Depressed Status: Chronic (7) Asthma Status: Chronic - Assessment and Plan (Free Text) Plan: BS stable, diabetic teaching Insulin done, cleared by Endocrinal and Renal consultants, Pt improved and stable to be discharged, f/u with PMD and Endocrine entry level sales consultant in a week.
[2017-01-18 16:07] VITALS: BP 108/73; RESP 20; TEMP 97.7; O2SAT 96
[2017-01-18 17:20] VITALS: PULSE 85
== END 2017-01-18 17:30 | disposition home or self-care (01) | DRG 566 ==
LOC: H.ER 17:29 → H.ERHOLD 22:58 → H.TEL 01-16 04:05
PROVIDERS: ADMIT Internal Medicine Pulmonary Disease; ATTEND Internal Medicine Pulmonary Disease
DX: E11.65 Type 2 diabetes mellitus with hyperglycemia (principal); N17.9 Acute kidney failure, unspecified; E87.5 Hyperkalemia; E87.1 Hypo-osmolality and hyponatremia; E86.0 Dehydration; I10 Essential (primary) hypertension; E78.5 Hyperlipidemia, unspecified; F41.1 Generalized anxiety disorder; J45.909 Unspecified asthma, uncomplicated; Z79.4 Long term (current) use of insulin; Z79.82 Long term (current) use of aspirin; Z79.899 Other long term (current) drug therapy; Z91.14 Patient's other noncompliance with medication regimen; Z91.19 Patient's noncompliance with other medical treatment and regimen; F32.9 Major depressive disorder, single episode, unspecified; F41.9 Anxiety disorder, unspecified; Z79.84 Long term (current) use of oral hypoglycemic drugs